=== PATIENT | female | born 1950 | race Caucasian/White ===

== ENCOUNTER 2016-05-05 11:54 | Emergency (ER) | payer OTHER ==
[2016-05-05] MEDS ORDERED: MECLIZINE HCL 25 MG TABLET PO ONE (13:14)
--- NOTE | 2016-05-05 13:24 | ERNOTE ---
Dizziness ER Record Date of Service: 05/05/16 Presenting Symptoms: dizziness Time Seen by Provider: 05/05/16 13:07 Source: patient Exam Limitations: no limitations Immunizations: IMMUNIZATION HX History of Influenza Vaccine Yes Hx Pneumococcal Vaccination No Allergies/Adverse Reactions: Allergies Allergy/AdvReac Type Severity Reaction Status Date / Time pneumococcal vaccine AdvReac Mild REDNESS, Verified 05/05/16 12:06 [Pneumococcal Vaccine] SWELLING AT SITE Tetanus Vaccines & Toxoid AdvReac Mild REDNESS, Verified 05/05/16 12:06 SWELLING AT SITE Home Medications: HOME MEDICATIONS ALPRAZolam [Xanax] 1 mg PO Q6H PRN 03/02/14 [Last Taken 04/24/14 20:00] Letrozole [Femara] 2.5 mg PO DAILY 03/18/15 [Last Taken Unknown] Ferrous Sulfate [Iron] 325 mg PO DAILY 07/30/15 [Last Taken Unknown] [place]-3 Fatty Acids/Fish Oil [Fish Oil 1,000 mg Capsule] 1 each PO DAILY [Last Taken Unknown] Meclizine HCl [Antivert] 25 mg PO TID #42 tab 05/05/16 [Last Taken Unknown] - History of Present Illness Narrative: Pt. comes in with c/o dizziness that has been increasing in intensity since wednesday. Pt. states that symptoms are worse in the morning as she wakes up but improved Wednesday and yesterday as the day progressed. Pt states that today her symptoms have not improved since she awoke at 1230 with these symptoms. Pt. denies any prehsopital treatment or alleviating factors. Pt. states that movement exacerbates the symptoms and that they are accompanied by nausea and vomiting today and chills and flushing. Pt. denies any fever, headache, SOB, CP , NVD, or recent illness. Pt. is a breast cancer survivor free of cancer for 2 years. Review of Systems - Review of Systems Constitutional: Present: chills, diaphoresis, weakness. Absent: recent illness , fever, fatigue, malaise EYE: Present: no symptoms reported. Absent: blurred vision, double vision, vision changes ENT: Present: no symptoms reported Respiratory: Present: no symptoms reported. Absent: shortness of breath, cough , wheezing Cardiology: Present: no symptoms reported. Absent: chest pain, palpitations, edema Gastrointestinal/Abdominal: Present: no symptoms reported. Absent: nausea, vomiting, diarrhea Genitourinary: Present: no symptoms reported Musculoskeletal: Present: no symptoms reported. Absent: back pain, joint pain Skin: Present: no symptoms reported. Absent: rash, change in color Neurological: Present: dizziness/light-headedness. Absent: headache, numbness, tingling All Other Systems: All systems neg except as marked - Patient's Past Medical History Patient History - Medical: Arthritis, Cataracts Patient History - Cardiac/Respiratory: Bronchitis Patient History - Cancer: Breast Patient History - Surgical Procedures: Cataracts, , Tubal Ligation, Other Patient History - Other: None LMP (females 10-50): Menopausal - Social History Living Situations: home Abuse History: No History of abuse Psych History: Hx of Anxiety Alcohol Use: none Drug Use: none - Immunizations Hx Pneumococcal Vaccination: No History of Influenza Vaccine: Yes Physical Exam - Physical Exam General Appearance: Present: wd/wn, alert, no apparent distress Eye Exam: Normal inspection: bilateral, PERRL: bilateral, EOMI: bilateral Ears, Nose, Throat: Present: normal ENT inspection, hearing grossly normal, normal pharynx Neck: Present: normal inspection, nontender. Absent: lymphadenopathy (R), lymphadenopathy (L) Respiratory: Present: no respiratory distress, normal breath sounds, no accessory muscle use, chest nontender, lungs clear Cardiovascular/Chest: Present: regular rate, rhythm, no murmur, normal peripheral pulses Gastrointestinal/Abdominal: Present: normal bowel sounds, nontender, nondistended, soft, no organomegaly Back Exam: Present: normal inspection, normal range of motion, no CVA tenderness , no vertebral tenderness Extremity Exam: Present: normal inspection, non-tender, no edema, normal range of motion Neurological Exam: Present: alert, oriented, normal mood/affect, no motor/ sensory deficits, pony roll finisher II-XII nml as tested, other - rhoimberg positive Skin Exam: Present: normal color, warm/dry. Absent: pallor, skin rash ED Progress - Date and Time Seen: Date and Time: 05/05/16 15:09 Pt. still with dizziness but states that it is mildly better after meclizine would send to out patient PT with vertigo. - Results and Orders Patient's Lab Results:: I have reviewed the patient's lab results. - Vital Signs Patient's Vital Signs:: I have reviewed the patient's vital signs. Vital Signs: Vital Signs 05/05/16 05/05/16 12:03 12:07 Temperature 34.8 C L Pulse Rate 76 76 Respiratory 16 Rate Blood Pressure 149/89 O2 Sat by Pulse 100 Oximetry - EKG EKG: other - SR with incomplete RBBB no acute EKG read: Interp. by me - CT/Ultrasound CT/Ultrasound Narrative: CT head negative - Progress/Reassessment Chief Complaint: Dizziness Progress:: Improved Departure Clinical Impression: Vertigo - Departure Disposition: Home self-care Condition: Good Instructions: Vertigo, [id number] Additional Instructions: Please follow up with primary provider in 2-3 days. Prescriptions: Meclizine HCl [Antivert] 25 mg PO TID #42 tab
[2016-05-05] MEDS ORDERED: MECLIZINE HCL 25 MG TABLET ONE (13:29)
[2016-05-05 13:32] LABS: Hematocrit 40.5 % (37.0-47.0); Hemoglobin 13.8 gm/dL (12.5-16.0); Mean Cell Volume 91.2 fl (78-100); Mean Corpuscular Hemoglobin 31.1 pg (27-31); Mean Corpuscular Hgb Conc 34.1 g/dl (32-36); Mean Platelet Volume 9.4 fl (6.0-9.5); Neutrophil # 8.8 K/mm3 (1.3-6.0); Neutrophil % 86.2 % (42-75.0); Platelet Count 272 K/mm3 (150-450); Red Blood Count 4.44 M/mm3 (4.2-5.4); Red Cell Distribution Width 12.6 % (11.5-14.0); White Blood Count 10.2 K/mm3 (4.0-10.5)
[2016-05-05 13:42] VITALS: BP 142/67
[2016-05-05 13:53] LABS: ALT 31 U/L (19-67); AST 25 U/L (0-48); Albumin * 4.1 gm/dl (3.4-5.0); Alkaline Phosphatase * 73 U/L (50-170); Anion Gap 17.8 mmol/L (6.8-13.8); BUN/Creatinine Ratio 12.9 (9.0-21.6); Bilirubin, Total 0.4 mg/dL (0.0-1.1); Blood Urea Nitrogen 11 mg/dL (3-23); Ca. Corrected For Albumin 9.3 mg/dL (8.4-10.2); Calcium * 9.7 mg/dL (7.9-10.9); Carbon Dioxide 23.8 mmol/L (24-32.6); Chloride 104 mmol/L (97-106); Glucose * 102 mg/dL (70-110); Potassium 3.6 mmol/L (3.4-4.6); Sodium 142 mmol/L (132-142); Total Protein 7.6 gm/dL (6.2-8.2); Troponin I Less than 0.017 ng/ml (0.00-0.10)
[2016-05-05 14:40] LABS: Urine Bilirubin Negative (NEGATIVE); Urine Blood Negative /ul (NEGATIVE); Urine Ketone Negative (NEGATIVE); Urine Nitrite Negative (NEGATIVE); Urine Protein Negative (NEGATIVE); Urine Urobilinogen Normal (NORMAL); Urine pH 8.5 pH (5.0-7.0)
[2016-05-05 14:49] LABS: Urine Amorphous Sediment Moderate - 2+ (NONE-FEW); Urine Appearance Clear; Urine Bacteria None Seen; Urine Color Yellow; Urine RBC None Seen /hpf (0-5); Urine WBC 0-5 /hpf (0-5)
== END 2016-05-05 15:12 | disposition home or self-care (01) ==
LOC: ER 11:54
DX: R42 Dizziness and giddiness (principal); Z85.3 Personal history of malignant neoplasm of breast; F41.9 Anxiety disorder, unspecified